=== PATIENT | female | born 1965 | race Caucasian/White ===

== ENCOUNTER → 2017-03-21 | Outpatient (CLI) | payer OTHER ==
[~2017-03-21] MED LIST: ACETAMINOPHEN500 MG PO; ALBU90OI INH; ALBU90OI61 INH; AMOCLA875 PO; Adipex-P37.5 M1 PO; Augmentin 875-1 EACH PO; CIPR500 PO; CIPR750 PO; Cyclobenzaprine5 MG PO; DIPH50 PO; Diflucan100 MG PO; FEXPSEER PO; FLONASE ALLERG9.9 ML; GUAI100SY; HYDACE25S PR; HYDGUAL120 PO; IBUP200; IBUP800 PO; MEDR10 PO; METO50 PO; METR500 PO; MIGRAINE RELIEF; Norco 10-325 T1 EACH PO; OXYACE5T PO; Percocet 5-3251 EACH PO; RANI150 PO; RXOXYACE PO; SULTRIDS PO; TRAZ100 PO; Toprol Xl25 MG PO; Zofran Odt4 MG SL; [UNRECOGNIZED DRUG - OTHER]
[2017-03-21 09:15] LABS: Source, Urine Clean Catch
[2017-03-21 10:49] LABS: Bacteria Not Seen /hpf; Red Blood Cells, Urine TNTC /hpf (0-2); Squamous Epithelial Cells Few /hpf (Few); White Blood Cells, Urine 0-2 /hpf (0-5)
== END ==
LOC: LAB 09:11
PROVIDERS: Nurse Practitioner Family
DX: R31.9 Hematuria, unspecified (principal)
CPT/HCPCS: 81015; 87086

== ENCOUNTER → 2017-03-28 | Outpatient (CLI) | payer OTHER | LOC: PLD 12:52 → LAB SHORT 12:52 | DX: N95.0 Postmenopausal bleeding (principal) | CPT/HCPCS: 88305 ==

== ENCOUNTER 2017-04-05 12:15 | Emergency (ER) | payer OTHER ==
[~2017-04-05] VITALS: Ht 172.7 cm; Wt 125.6 kg
[~2017-04-05 12:15] MED LIST changes: -MEDR10 PO; -METO50 PO; -MIGRAINE RELIEF; -Toprol Xl25 MG PO; -Zofran Odt4 MG SL; -[UNRECOGNIZED DRUG - OTHER]
[2017-04-05] MEDS ORDERED: MEDR10 PO (12:51)
[2017-04-05 13:07] LABS: BASOPHILS ABSOLUTE AUTO 0.04 K/mm3 (0.00-0.23); BASOPHILS PERCENT AUTO 1 % (0-2); EOSINOPHILS ABSOLUTE AUTO 0.26 K/mm3 (0.00-0.68); EOSINOPHILS PERCENT AUTO 3 % (0-6); Hematocrit 36.6 % (33.0-51.0); Hemoglobin 11.9 g/dL (11.5-16.0); IMMATURE GRAN ABSOLUTE AUTO 0.04 K/mm3 (0.00-0.10); IMMATURE GRAN PERCENT AUTO 1 % (0-1); LYMPHOCYTES ABSOLUTE AUTO 1.66 K/mm3 (0.84-5.20); LYMPHOCYTES PERCENT AUTO 19 % (21-46); MONOCYTES ABSOLUTE AUTO 0.76 K/mm3 (0.16-1.47); MONOCYTES PERCENT AUTO 9 % (4-13); Mean Corpuscular HGB 28.3 pg (26.0-34.0); Mean Corpuscular HGB Conc 32.5 g/dL (31.5-36.5); Mean Corpuscular Volume 87 fL (80-100); Mean Platelet Volume 9.4 fL (9.1-12.4); NEUTROPHILS ABSOLUTE AUTO 5.91 K/mm3 (1.96-9.15); NEUTROPHILS PERCENT AUTO 68 % (41-73); Platelet Count 251 K/mm3 (150-400); RDW Standard Deviation 47.6 fL (35.1-46.3); Red Blood Cell Count 4.21 M/mm3 (3.80-5.20); White Blood Cell Count 8.67 K/mm3 (4.00-11.30)
[2017-04-05 13:33] LABS: Alanine Aminotransfer (ALT/SGP 29 U/L (12-78); Albumin, Blood 3.4 g/dL (3.4-5.0); Albumin/Globulin Ratio 0.9 (0.8-1.8); Alk Phos 93 U/L (50-136); Anion Gap 8 mmol/L (6-16); Aspartate Aminotrans (AST/SGOT 15 U/L (12-37); Bilirubin, Total 0.6 mg/dL (0.1-1.0); Blood Urea Nitrogen 11 mg/dL (8-24); Bun/Creatinine Ratio 16.2 (12.0-20.0); CO2, Blood 24 mmol/L (21-32); Calcium, Blood 8.5 mg/dL (8.5-10.1); Chloride, Blood 109 mmol/L (98-108); Creatinine, Blood 0.68 mg/dL (0.40-1.00); Free Thyroxine 1.06 ng/dL (0.70-1.60); Globulin, Blood 3.7 g/dL (2.2-4.0); Glomerular Filtration Rate >60 (60-); Glucose, Blood 112 mg/dL (70-99); Magnesium, Blood 2.2 mg/dL (1.6-2.4); Potassium, Blood 3.6 mmol/L (3.5-5.5); Sodium, Blood 141 mmol/L (136-145); Total Protein, Blood 7.1 g/dL (6.4-8.2)
[2017-04-05 13:37] LABS: Thyroid Stimulating Hormone 0.514 uIU/mL (0.360-4.800)
[2017-04-05] MEDS ORDERED: Toprol Xl25 MG PO (13:56)
== END 2017-04-05 14:04 | disposition home or self-care (01) ==
LOC: ER 12:15
PROVIDERS: Emergency Medicine
DX: I48.91 Unspecified atrial fibrillation (principal); Z79.899 Other long term (current) drug therapy; Z90.721 Acquired absence of ovaries, unilateral
CPT/HCPCS: 36415; 71046; 80053; 83735; 84439; 84443; 85025; 93005; 93010; 99283

== ENCOUNTER 2017-04-28 11:55 | Emergency (ER) | payer OTHER ==
[~2017-04-28] VITALS: Ht 172.7 cm; Wt 123.4 kg
[~2017-04-28 11:55] MED LIST changes: +MEDR10 PO; +Toprol Xl25 MG PO
[2017-04-28 12:57] LABS: BASOPHILS ABSOLUTE AUTO 0.04 K/mm3 (0.00-0.23); BASOPHILS PERCENT AUTO 0 % (0-2); EOSINOPHILS ABSOLUTE AUTO 0.31 K/mm3 (0.00-0.68); EOSINOPHILS PERCENT AUTO 3 % (0-6); Hematocrit 37.7 % (33.0-51.0); Hemoglobin 12.1 g/dL (11.5-16.0); IMMATURE GRAN ABSOLUTE AUTO 0.07 K/mm3 (0.00-0.10); IMMATURE GRAN PERCENT AUTO 1 % (0-1); LYMPHOCYTES ABSOLUTE AUTO 1.97 K/mm3 (0.84-5.20); LYMPHOCYTES PERCENT AUTO 21 % (21-46); MONOCYTES ABSOLUTE AUTO 1.24 K/mm3 (0.16-1.47); MONOCYTES PERCENT AUTO 13 % (4-13); Mean Corpuscular HGB 28.1 pg (26.0-34.0); Mean Corpuscular HGB Conc 32.1 g/dL (31.5-36.5); Mean Corpuscular Volume 88 fL (80-100); Mean Platelet Volume 9.2 fL (9.1-12.4); NEUTROPHILS ABSOLUTE AUTO 5.66 K/mm3 (1.96-9.15); NEUTROPHILS PERCENT AUTO 61 % (41-73); Platelet Count 310 K/mm3 (150-400); RDW Coefficient Variation 14.7 % (11.7-14.2); RDW Standard Deviation 47.3 fL (35.1-46.3); Red Blood Cell Count 4.31 M/mm3 (3.80-5.20); White Blood Cell Count 9.29 K/mm3 (4.00-11.30)
[2017-04-28 13:17] LABS: Alanine Aminotransfer (ALT/SGP 25 U/L (12-78); Albumin, Blood 3.6 g/dL (3.4-5.0); Albumin/Globulin Ratio 0.8 (0.8-1.8); Alk Phos 120 U/L (50-136); Anion Gap 7 mmol/L (6-16); Aspartate Aminotrans (AST/SGOT 21 U/L (12-37); Bilirubin, Total 0.4 mg/dL (0.1-1.0); Blood Urea Nitrogen 12 mg/dL (8-24); Bun/Creatinine Ratio 21.6 (12.0-20.0); CO2, Blood 24 mmol/L (21-32); Calcium, Blood 8.7 mg/dL (8.5-10.1); Chloride, Blood 107 mmol/L (98-108); Creatinine, Blood 0.56 mg/dL (0.40-1.00); Globulin, Blood 4.7 g/dL (2.2-4.0); Glomerular Filtration Rate >60 (60-); Glucose, Blood 97 mg/dL (70-99); Potassium, Blood 4.3 mmol/L (3.5-5.5); Sodium, Blood 138 mmol/L (136-145); Total Protein, Blood 8.3 g/dL (6.4-8.2)
== END 2017-04-28 15:29 | disposition home or self-care (01) ==
LOC: ER 11:55
PROVIDERS: Physician Assistant
DX: K30 Functional dyspepsia (principal); Z79.899 Other long term (current) drug therapy; Z87.891 Personal history of nicotine dependence
CPT/HCPCS: 36415; 74022; 80053; 81000; 83690; 85025; 96374; 99283; C9113

== ENCOUNTER 2017-05-27 04:53 | Emergency (ER) | payer OTHER ==
[~2017-05-27] VITALS: Ht 172.7 cm; Wt 122.5 kg
[2017-05-27] MEDS ORDERED: [UNRECOGNIZED DRUG - OTHER] (05:19)
[2017-05-27] MEDS ORDERED: MIGRAINE RELIEF (05:19)
[2017-05-27] MEDS ORDERED: METO50 PO (05:19)
[2017-05-27 05:22] LABS: BASOPHILS ABSOLUTE AUTO 0.04 K/mm3 (0.00-0.23); BASOPHILS PERCENT AUTO 0 % (0-2); EOSINOPHILS PERCENT AUTO 3 % (0-6); Hematocrit 36.7 % (33.0-51.0); Hemoglobin 11.6 g/dL (11.5-16.0); IMMATURE GRAN ABSOLUTE AUTO 0.07 K/mm3 (0.00-0.10); IMMATURE GRAN PERCENT AUTO 1 % (0-1); LYMPHOCYTES ABSOLUTE AUTO 1.91 K/mm3 (0.84-5.20); LYMPHOCYTES PERCENT AUTO 16 % (21-46); MONOCYTES ABSOLUTE AUTO 0.97 K/mm3 (0.16-1.47); MONOCYTES PERCENT AUTO 8 % (4-13); Mean Corpuscular HGB 27.4 pg (26.0-34.0); Mean Corpuscular HGB Conc 31.6 g/dL (31.5-36.5); Mean Corpuscular Volume 87 fL (80-100); Mean Platelet Volume 9.1 fL (9.1-12.4); NEUTROPHILS ABSOLUTE AUTO 8.69 K/mm3 (1.96-9.15); NEUTROPHILS PERCENT AUTO 73 % (41-73); Platelet Count 306 K/mm3 (150-400); RDW Coefficient Variation 14.6 % (11.7-14.2); RDW Standard Deviation 46.5 fL (35.1-46.3); Red Blood Cell Count 4.23 M/mm3 (3.80-5.20); White Blood Cell Count 11.98 K/mm3 (4.00-11.30)
[2017-05-27 05:40] LABS: Alanine Aminotransfer (ALT/SGP 21 U/L (12-78); Albumin, Blood 3.2 g/dL (3.4-5.0); Albumin/Globulin Ratio 0.7 (0.8-1.8); Alk Phos 122 U/L (50-136); Anion Gap 5 mmol/L (6-16); Aspartate Aminotrans (AST/SGOT 13 U/L (12-37); Bilirubin, Total 0.3 mg/dL (0.1-1.0); Blood Urea Nitrogen 11 mg/dL (8-24); Bun/Creatinine Ratio 16.3 (12.0-20.0); CO2, Blood 28 mmol/L (21-32); Calcium, Blood 8.7 mg/dL (8.5-10.1); Chloride, Blood 105 mmol/L (98-108); Creatinine, Blood 0.68 mg/dL (0.40-1.00); Globulin, Blood 4.5 g/dL (2.2-4.0); Glomerular Filtration Rate >60 (60-); Glucose, Blood 120 mg/dL (70-99); Potassium, Blood 4.2 mmol/L (3.5-5.5); Sodium, Blood 138 mmol/L (136-145); Total Protein, Blood 7.7 g/dL (6.4-8.2)
[2017-05-27] MEDS ORDERED: Percocet 5-3251 EACH PO (06:07)
[2017-05-27] MEDS ORDERED: Zofran Odt4 MG SL (06:07)
[2017-05-27] MEDS ORDERED: Augmentin 875-1 EACH PO (06:07)
== END 2017-05-27 06:24 | disposition home or self-care (01) ==
LOC: ER 04:53
PROVIDERS: Emergency Medicine
DX: K57.32 Diverticulitis of large intestine without perforation or abscess without bleeding (principal); Z79.899 Other long term (current) drug therapy; Z87.891 Personal history of nicotine dependence
CPT/HCPCS: 36415; 74176; 80053; 83690; 85025; 96361; 96374; 96375; 99284; J1170; J2405; J7030

== ENCOUNTER 2017-09-09 07:28 | Emergency (ER) | payer OTHER ==
[~2017-09-09] VITALS: Ht 172.7 cm; Wt 127.0 kg
[~2017-09-09 07:28] MED LIST changes: +METO50 PO; +MIGRAINE RELIEF; +Zofran Odt4 MG SL; +[UNRECOGNIZED DRUG - OTHER]
== END 2017-09-09 08:35 | disposition home or self-care (01) ==
LOC: ER 07:28
DX: R00.2 Palpitations (principal); Z88.8 Allergy status to other drugs, medicaments and biological substances; Z79.899 Other long term (current) drug therapy; Z87.891 Personal history of nicotine dependence
CPT/HCPCS: 36415; 93005; 93010; 99284

== ENCOUNTER 2020-05-23 07:55 | Day surgery (SDC) | payer OTHER, SELFPAY ==
[~2020-05-23] VITALS: Ht 172.7 cm; Wt 133.4 kg
[~2020-05-23 07:55] MED LIST changes: +BUPR150ER PO; +FLUT.05NI; +GLUMETZA PO; +METO100ER PO; +METO50ER PO; +Naltrexone HCl50 MG PO; +OMEP20ER PO
--- NOTE | 2020-05-23 09:37 | NUR ---
Ambulatory in Day Surgery History, Chart, Medications and Allergies reviewed before start of procedure. Lungs clear T/O to Auscultation. Patient confirms NPO status and agrees with scheduled surgery. Patient States Post-Procedure ride home has been arranged.
[2020-05-23] MEDS ORDERED: MAGNESIUM (09:40)
[2020-05-23] MEDS ORDERED: PROBIOTICS (09:41)
[2020-05-23] MEDS ORDERED: VITAMIN D3 (09:41)
[2020-05-23] MEDS ORDERED: COQ-10100 MG (09:42)
[2020-05-23] MEDS ORDERED: CALCIUM (09:42)
--- NOTE | 2020-05-23 10:44 | NUR ---
05/23/20 1044 Jassi Rutledge PATIENT HAD HER RIGHT OVARY AND FALLOPIAN TUBE REMOVED PREVIOUSLY
[2020-05-24] MEDS ORDERED: IBUP800 PO (07:24)
[2020-05-24] MEDS ORDERED: OXYC5 PO (07:25)
--- NOTE | 2020-05-24 08:20 | NUR ---
PT X1 DAY POST OPRATIVE LAVH, PT A&O X4, SL IN RFA AN FLUSHES WELL, PT KAREN SOB AND USES CPAP AT NIGHT ON RA, BOWEL TONES HYPOACTIVE, PT KAREN N&V, PT HAS 4 LAPROSCOPIC INCISION SITES ON ABD, ENCOURAGD AMBULATION TO RELIEF GAS PAIN, ANTICIPATING D/C HOME THIS AM.
--- NOTE | 2020-05-24 12:00 | NUR ---
PT AMBULATED TO [employer] [facility] AND D/C HOME, FAMILY PROVIDING TRANSPORTATION. SL D/C WNL, D/C INSTRUCTIONS REVIEWED AND SIGNED, PT BELONGNINGS SENT WITH PT.
== END 2020-05-24 12:05 | disposition home or self-care (01) ==
LOC: ORSCMMR 07:55 → ORD 09:30 → BC 13:45 → ORSCMMR 05-24 12:05
PROVIDERS: Obstetrics & Gynecology
PROC: 0UT1FZZ Resection of Left Ovary, Via Natural or Artificial Opening With Percutaneous Endoscopic Assistance (ICD-10-PCS; principal; 2020-05-23 09:30)
PROC: 0UT6FZZ Resection of Left Fallopian Tube, Via Natural or Artificial Opening With Percutaneous Endoscopic Assistance (ICD-10-PCS; principal; 2020-05-23 09:30)
PROC: 0UT9FZZ Resection of Uterus, Via Natural or Artificial Opening With Percutaneous Endoscopic Assistance (ICD-10-PCS; principal; 2020-05-23 09:30)
DX: N95.0 Postmenopausal bleeding (principal); R93.89 Abnormal findings on diagnostic imaging of other specified body structures; I48.91 Unspecified atrial fibrillation; J44.9 Chronic obstructive pulmonary disease, unspecified; G47.33 Obstructive sleep apnea (adult) (pediatric); E11.9 Type 2 diabetes mellitus without complications; E66.01 Morbid (severe) obesity due to excess calories; Z68.41 Body mass index [BMI] 40.0-44.9, adult; K21.9 Gastro-esophageal reflux disease without esophagitis; Z79.899 Other long term (current) drug therapy
CPT/HCPCS: 82947; 88307; A9270; J0171; J0690; J1100; J1170; J1885; J2250; J2370; J2405; J2704; J2765; J3010; J7120

== ENCOUNTER 2020-08-05 11:43 | Day surgery (SDC) | payer OTHER ==
[~2020-08-05] VITALS: Ht 172.7 cm; Wt 129.2 kg
[~2020-08-05 11:43] MED LIST changes: +CALCIUM; +COQ-10100 MG; +MAGNESIUM; +OXYC5 PO; +PROBIOTICS; +VITAMIN D3
--- NOTE | 2020-08-05 12:14 | NUR ---
08/05/20 1214 Luz Maria Balbuena, RN CHARTING IN PREOP
[2020-08-05] MEDS ORDERED: Acetaminophen325 M1 PO (12:38)
[2020-08-05] MEDS ORDERED: METF500 PO (12:41)
[2020-08-05] MEDS ORDERED: Aspir 8181 MG PO (12:43)
--- NOTE | 2020-08-05 15:29 | NUR ---
08/05/20 1529 Suly Saravia PT IS CRYING AND EXPRESSING 9/10 PAIN, SHE HAS BEEN MEDICATED, SHE IS EATING AND DRINKING WHILE STATING THIS IS THE WORSE PAIN EVER. VS ARE STABLE AND ICE IS BEHIND HER KNEE ON THE OPERATIVE SIDE.
== END 2020-08-05 16:28 | disposition home or self-care (01) ==
LOC: ORSCSDS 11:43
PROVIDERS: Podiatrist Foot & Ankle Surgery
PROC: 0QSJ04Z Reposition Right Fibula with Internal Fixation Device, Open Approach (ICD-10-PCS; principal; 2020-08-05 14:00)
PROC: 0MQQ0ZZ Repair Right Ankle Bursa and Ligament, Open Approach (ICD-10-PCS; principal; 2020-08-05 14:00)
DX: S82.61XA Displaced fracture of lateral malleolus of right fibula, initial encounter for closed fracture (principal); S93.421A Sprain of deltoid ligament of right ankle, initial encounter; I48.91 Unspecified atrial fibrillation; J44.9 Chronic obstructive pulmonary disease, unspecified; G47.33 Obstructive sleep apnea (adult) (pediatric); Z87.891 Personal history of nicotine dependence; K21.9 Gastro-esophageal reflux disease without esophagitis; E11.9 Type 2 diabetes mellitus without complications; E66.01 Morbid (severe) obesity due to excess calories; Z68.41 Body mass index [BMI] 40.0-44.9, adult; Z79.84 Long term (current) use of oral hypoglycemic drugs; Z79.899 Other long term (current) drug therapy; J45.909 Unspecified asthma, uncomplicated; Z79.82 Long term (current) use of aspirin
CPT/HCPCS: 82947; A9270; C1713; J0171; J0690; J1100; J1885; J2250; J2405; J2704; J3010; J7120

== ENCOUNTER 2021-02-10 09:20 | Day surgery (SDC) | payer OTHER ==
[~2021-02-10] VITALS: Ht 172.7 cm; Wt 128.6 kg
[~2021-02-10 09:20] MED LIST changes: +Acetaminophen325 M1 PO; +Aspir 8181 MG PO; +METF500 PO
[2021-02-10] MEDS ORDERED: MAGNESIUM OXID500 MG PO (10:42)
[2021-02-10] MEDS ORDERED: VITAMIN D5000 UNIT PO (10:43)
[2021-02-10] MEDS ORDERED: PRED20 PO (10:44)
[2021-02-10] MEDS ORDERED: TRAM50 PO (10:45)
[2021-02-10] MEDS ORDERED: BENZONATATE100 MG PO (10:45)
[2021-02-10] MEDS ORDERED: AZIT200SU PO (10:45)
--- NOTE | 2021-02-10 12:26 | NUR ---
02/10/21 1226 Robbin Farris 0.25MG EPI ADDED TO 50 ML'S 0.5% MARCAINE TO ACHIEVE SOLUTION OF 0.5% MARCAINE WITH EPI 1:200,000. 10 ML'S OF THIS SOLUTION INJ AT END OF CASE BY DR CABRERA.
== END 2021-02-10 13:23 | disposition home or self-care (01) ==
LOC: ORSCSDS 09:20
PROVIDERS: Orthopaedic Surgery
PROC: 0SBD4ZZ Excision of Left Knee Joint, Percutaneous Endoscopic Approach (ICD-10-PCS; principal; 2021-02-10 10:45)
DX: S83.242A Other tear of medial meniscus, current injury, left knee, initial encounter (principal); I48.91 Unspecified atrial fibrillation; J44.9 Chronic obstructive pulmonary disease, unspecified; Z87.891 Personal history of nicotine dependence; E11.9 Type 2 diabetes mellitus without complications; E66.01 Morbid (severe) obesity due to excess calories; Z68.41 Body mass index [BMI] 40.0-44.9, adult; Z79.84 Long term (current) use of oral hypoglycemic drugs; Z79.899 Other long term (current) drug therapy; Z79.82 Long term (current) use of aspirin
CPT/HCPCS: 82947; J0171; J0690; J1100; J1885; J2250; J2405; J2704; J3010; J7120

== ENCOUNTER → 2021-03-17 | Outpatient (CLI) | payer OTHER ==
[~2021-03-17] MED LIST changes: +AZIT200SU PO; +BENZONATATE100 MG PO; +MAGNESIUM OXID500 MG PO; +PRED20 PO; +TRAM50 PO; +VITAMIN D5000 UNIT PO
== END | disposition home or self-care (01) ==
LOC: LAB SHORT 11:30
DX: R35.0 Frequency of micturition (principal)
CPT/HCPCS: 87077; 87086; 87186

== ENCOUNTER → 2021-04-11 | Outpatient (CLI) | payer OTHER | END | disposition home or self-care (01) | LOC: LAB SHORT 14:19 | DX: U07.1 COVID-19 (principal); J02.9 Acute pharyngitis, unspecified | CPT/HCPCS: 87081 ==

== ENCOUNTER 2021-10-29 22:47 | Observation (INO) | payer OTHER ==
[~2021-10-29] VITALS: Ht 172.7 cm; Wt 134.3 kg
[2021-10-29 23:38] LABS: BASOPHILS ABSOLUTE AUTO 0.07 K/mm3 (0.00-0.23); BASOPHILS PERCENT AUTO 1 % (0-2); EOSINOPHILS ABSOLUTE AUTO 0.46 K/mm3 (0.00-0.68); EOSINOPHILS PERCENT AUTO 3 % (0-6); Hematocrit 35.4 % (33.0-51.0); Hemoglobin 11.4 g/dL (11.5-16.0); IMMATURE GRAN ABSOLUTE AUTO 0.33 K/mm3 (0.00-0.10); IMMATURE GRAN PERCENT AUTO 2 % (0-1); LYMPHOCYTES ABSOLUTE AUTO 3.64 K/mm3 (0.84-5.20); LYMPHOCYTES PERCENT AUTO 25 % (21-46); MONOCYTES ABSOLUTE AUTO 1.75 K/mm3 (0.16-1.47); MONOCYTES PERCENT AUTO 12 % (4-13); Mean Corpuscular HGB 26.5 pg (26.0-34.0); Mean Corpuscular HGB Conc 32.2 g/dL (31.5-36.5); Mean Corpuscular Volume 82 fL (80-100); Mean Platelet Volume 9.3 fL (9.1-12.4); NEUTROPHILS ABSOLUTE AUTO 8.55 K/mm3 (1.96-9.15); NEUTROPHILS PERCENT AUTO 58 % (41-73); Platelet Count 409 K/mm3 (150-400); RDW Coefficient Variation 17.3 % (11.7-14.2); RDW Standard Deviation 51.6 fL (35.1-46.3); Red Blood Cell Count 4.31 M/mm3 (3.80-5.20)
[2021-10-29 23:57] LABS: Albumin, Blood 3.2 g/dL (3.4-5.0); Albumin/Globulin Ratio 0.8 (0.8-1.8); Bilirubin, Total 0.3 mg/dL (0.1-1.0); Calcium, Blood 8.6 mg/dL (8.5-10.1); Creatinine, Blood 0.64 mg/dL (0.40-1.00); Globulin, Blood 3.9 g/dL (2.2-4.0); Potassium, Blood 3.8 mmol/L (3.5-5.5); Thyroid Stimulating Hormone 2.67 uIU/mL (0.360-4.800); Total Protein, Blood 7.1 g/dL (6.4-8.2)
[2021-10-30] MEDS ORDERED: ACET500 PO (03:02)
[2021-10-30] MEDS ORDERED: FEROSUL325 M1 PO (03:03)
[2021-10-30] MEDS ORDERED: BACL10 PO (03:04)
[2021-10-30] MEDS ORDERED: ONDA4ODT MM (03:05)
[2021-10-30] MEDS ORDERED: ASCO500 PO (03:05)
[2021-10-30] MEDS ORDERED: FERROUS GLUCON324 M7 PO (03:07)
--- NOTE | 2021-10-30 06:00 | NUR ---
MS. GUNTER WAS ABLE TO REST OFF AND ON THROUGH THE NIGHT. THIS WAS A BIT OF A CHALLENGE DUE TO THE PATIENT IN THE ROOM NEXT DOOR SCREAMING OUT FAIRLY OFTEN THROUGH THE NIGHT. DESPITE THAT, MS. GUNTER DID SAY THAT SHE DOES FEEL BETTER THIS MORNING. A MATTER OF FACT SHE FELT BETTER ALMOST INSTANTLY AFTER THE PERICARDIOCENTESIS WAS PERFORMED YESTERDAY. SHE DENIES SHORTNESS OF BREATH AND/OR ANY DIFFICULTY BREATHING. SHE DID REQUIRED 2 LPM PER NASAL CANNNULA OF SUPPLEMENTAL OXYGEN FOLLOWING THE PROCEDURE. THIS CONTINUED THROUGHOUT THE NIGHT UNTIL THE 0300 HOUR WHEN HER OXYGEN NEEDS INCREASED TO 4 LPM. SHE DID NOT FEEL SHORT OF BREATH, WAS RESTING COMFORTABLY, LUNGS WERE CLEAR AND NO AUSCULTATION OF RESTRICTED AIR MOVEMENT. WILL CONTINUE TO MONITOR
[2021-10-30 06:08] LABS: Albumin, Blood 3.1 g/dL (3.4-5.0); Albumin/Globulin Ratio 0.8 (0.8-1.8); Bilirubin, Total 0.3 mg/dL (0.1-1.0); Bun/Creatinine Ratio 12.2 (12.0-20.0); Calcium, Blood 8.6 mg/dL (8.5-10.1); Creatinine, Blood 0.58 mg/dL (0.40-1.00); Globulin, Blood 3.8 g/dL (2.2-4.0); Potassium, Blood 3.7 mmol/L (3.5-5.5); Total Protein, Blood 6.9 g/dL (6.4-8.2)
[2021-10-30 06:11] LABS: BASOPHILS ABSOLUTE AUTO 0.09 K/mm3 (0.00-0.23); BASOPHILS PERCENT AUTO 1 % (0-2); EOSINOPHILS ABSOLUTE AUTO 0.41 K/mm3 (0.00-0.68); EOSINOPHILS PERCENT AUTO 3 % (0-6); Hematocrit 35.7 % (33.0-51.0); Hemoglobin 11.2 g/dL (11.5-16.0); IMMATURE GRAN ABSOLUTE AUTO 0.27 K/mm3 (0.00-0.10); IMMATURE GRAN PERCENT AUTO 2 % (0-1); LYMPHOCYTES ABSOLUTE AUTO 2.76 K/mm3 (0.84-5.20); LYMPHOCYTES PERCENT AUTO 23 % (21-46); MONOCYTES ABSOLUTE AUTO 1.22 K/mm3 (0.16-1.47); MONOCYTES PERCENT AUTO 10 % (4-13); Mean Corpuscular HGB 26.4 pg (26.0-34.0); Mean Corpuscular HGB Conc 31.4 g/dL (31.5-36.5); Mean Corpuscular Volume 84 fL (80-100); Mean Platelet Volume 9.6 fL (9.1-12.4); NEUTROPHILS ABSOLUTE AUTO 7.32 K/mm3 (1.96-9.15); NEUTROPHILS PERCENT AUTO 61 % (41-73); Platelet Count 366 K/mm3 (150-400); RDW Coefficient Variation 17.3 % (11.7-14.2); RDW Standard Deviation 53.7 fL (35.1-46.3); Red Blood Cell Count 4.24 M/mm3 (3.80-5.20); White Blood Cell Count 12.07 K/mm3 (4.00-11.30)
--- NOTE | 2021-10-30 08:29 | NUR ---
CARDIZEM GTT STOPPED PER DR SIGALA VERBAL ORDER. AT BEDSIDE AT THIS TIME.
--- NOTE | 2021-10-30 13:02 | NUR ---
PT BACK TO BED AFTER TAKING A SHOWER. NO REPORT OF SOB OR HEART PALPITATIONS. SATS IN THE 90'S AND HR IN THE 80'S AFTER PT HOOKED BACK UP TO TELE AND VITALS TAKEN.
--- NOTE | 2021-10-30 16:46 | NUR ---
SHIFT SUMMARY PT A/OX4 AND COOPERATIVE OF CARE. VSS THROUGHOUT SHIFT WITH O2 SATS HIGH 90'S ON RA. CARDIZEM GTT STOPPED AT 0843 PER ORDERS, SEE NOTES. PT REMAINED SR THROUGHOUT SHIFT, BEFORE SCHOOL BABYSITTER ADJUSTED METOPROLOL DOSAGE, SEE EMAR. NO REPORT OF CHEST PAIN/PRESSURE THROUGHOUT SHIFT. NO REPORT OF SOB THROUGHOUT SHIFT. PT WAS UP TO BATHROOM MULTIPLE TIMES AND TOOK SHOWER ON HER OWN, TOLERATED WELL. HR OCCASSIONALLY IN 100'S WHEN PT AMBULATING, STAYED IN 90'S MAJORITY OF THE TIME WHEN PT WAS AMBULATING. PT REPORTED CHARONIC BACK PAIN, TREATED PER EMAR.
[2021-10-31 04:11] LABS: BASOPHILS ABSOLUTE AUTO 0.06 K/mm3 (0.00-0.23); BASOPHILS PERCENT AUTO 1 % (0-2); EOSINOPHILS PERCENT AUTO 4 % (0-6); Hematocrit 32.4 % (33.0-51.0); Hemoglobin 10.2 g/dL (11.5-16.0); IMMATURE GRAN ABSOLUTE AUTO 0.14 K/mm3 (0.00-0.10); IMMATURE GRAN PERCENT AUTO 1 % (0-1); LYMPHOCYTES ABSOLUTE AUTO 2.54 K/mm3 (0.84-5.20); LYMPHOCYTES PERCENT AUTO 26 % (21-46); MONOCYTES ABSOLUTE AUTO 1.13 K/mm3 (0.16-1.47); MONOCYTES PERCENT AUTO 12 % (4-13); Mean Corpuscular HGB 26.4 pg (26.0-34.0); Mean Corpuscular HGB Conc 31.5 g/dL (31.5-36.5); Mean Corpuscular Volume 84 fL (80-100); Mean Platelet Volume 9.5 fL (9.1-12.4); NEUTROPHILS ABSOLUTE AUTO 5.46 K/mm3 (1.96-9.15); NEUTROPHILS PERCENT AUTO 56 % (41-73); Platelet Count 312 K/mm3 (150-400); RDW Coefficient Variation 17.2 % (11.7-14.2); RDW Standard Deviation 52.7 fL (35.1-46.3); Red Blood Cell Count 3.87 M/mm3 (3.80-5.20); White Blood Cell Count 9.73 K/mm3 (4.00-11.30)
[2021-10-31 04:32] LABS: Bun/Creatinine Ratio 14.9 (12.0-20.0); Calcium, Blood 8.8 mg/dL (8.5-10.1); Creatinine, Blood 0.54 mg/dL (0.40-1.00); Potassium, Blood 4.2 mmol/L (3.5-5.5)
--- NOTE | 2021-10-31 06:49 | NUR ---
NO ACUTE EVENTS OVERNIGHT. MRS. GUNTER REMAINED IN SINUS RHYTHM WITH RATES IN THE 60S -80S THROUGHOUT THE NIGHT. VSS, INDPENDENT WITH ALL CARES.
--- NOTE | 2021-10-31 08:00 | NUR ---
PT A&OX4. PT DENIES PAIN, CP, OR SOB. ECG SHOWS SR WITH RATE 60'S. BP STABLE. LUNGS SLIGHTLY DIMINISHED IN THE BASES.SATS 98% ON RA. NO NOTED COUGH. PT DENIES GI DISTRESS. UP INDEPENDENTLY IN THE ROOM. PT VERBALIZES THAT SHE IS ANXIOUS TO GO HOME. CALL LIGHT WITHIN REACH. ANTICIPATE DISCHARGE TO HOME LATER TODAY. PT TO FOLLOW UP WITH DR. SIGALA.
--- NOTE | 2021-10-31 11:51 | NUR ---
PT UP AD [place] IN THE ROOM. NO COMPLAINTS-AWAITING DISCHARGE.
[2021-10-31] MEDS ORDERED: METO50ER PO (12:12)
--- NOTE | 2021-10-31 12:51 | NUR ---
REVIEWED DISCHARGE INSTRUCTIONS WITH PT. PT VERBALIZES UNDERSTANDING. IV DISCONTINUED. PT HAS HER BELONGINGS. AWAITING TRANSPORTATION.
== END 2021-10-31 13:47 | disposition home or self-care (01) ==
LOC: ER 22:47 → ICUW 22:48 → PCU 22:48 → ICUW 22:48 → PCU 10-30 02:00
PROVIDERS: Emergency Medicine; Family Medicine; ADMIT Internal Medicine
DX: I47.1 Supraventricular tachycardia (principal); I48.20 Chronic atrial fibrillation, unspecified; D72.829 Elevated white blood cell count, unspecified; I10 Essential (primary) hypertension; J45.909 Unspecified asthma, uncomplicated; Z79.899 Other long term (current) drug therapy; Z79.84 Long term (current) use of oral hypoglycemic drugs; Z79.82 Long term (current) use of aspirin; Z87.891 Personal history of nicotine dependence
CPT/HCPCS: 36415; 80048; 80053; 83735; 84443; 84484; 85025; 93005; 93010; 93306; 94660; 94762; 96365; 96372; 96375; 99285-25; A9270; G0378; J1650; J3480; J7030

== ENCOUNTER 2022-01-15 11:10 | Day surgery (SDC) | payer OTHER ==
[~2022-01-15] VITALS: Ht 172.7 cm; Wt 133.2 kg
[~2022-01-15 11:10] MED LIST changes: +ACET500 PO; +ASCO500 PO; +BACL10 PO; +FEROSUL325 M1 PO; +FERROUS GLUCON324 M7 PO; +ONDA4ODT MM
--- NOTE | 2022-01-15 13:09 | NUR ---
01/15/22 1309 SANJUANA RO 0.15MG OF EPI ADDED TO 30MLS OF BUPIVACAINE 0.5% TO CREATE A LOCAL SOLUTION OF BUPIVACAINE 0.5% WITH EPI 1:200,000. LOCAL POURED ONTO STERILE FIELD FOR USE DURING CASE.
--- NOTE | 2022-01-15 13:57 | NUR ---
01/15/22 1357 SERA SHELDON PT C/O PAIN 06/18. SHE REQUESTED BOTH IV AND PO MEDICATION. BP 112/72 PULSE 80 O2 SAT 99%. FENTANYL 25MCG IV PUSH NOW WELL PERCOCET 5/325MG PO NOW.
== END 2022-01-15 14:45 | disposition home or self-care (01) ==
LOC: ORSCSDS 11:10
PROVIDERS: Podiatrist Foot & Ankle Surgery
PROC: 0SPF04Z Removal of Internal Fixation Device from Right Ankle Joint, Open Approach (ICD-10-PCS; principal; 2022-01-15 12:30)
DX: T84.84XA Pain due to internal orthopedic prosthetic devices, implants and grafts, initial encounter (principal); I48.91 Unspecified atrial fibrillation; E11.9 Type 2 diabetes mellitus without complications; J44.9 Chronic obstructive pulmonary disease, unspecified; G47.33 Obstructive sleep apnea (adult) (pediatric); Z79.84 Long term (current) use of oral hypoglycemic drugs; Z79.899 Other long term (current) drug therapy; Z79.82 Long term (current) use of aspirin; Z87.891 Personal history of nicotine dependence; E66.01 Morbid (severe) obesity due to excess calories; Z68.41 Body mass index [BMI] 40.0-44.9, adult
CPT/HCPCS: A9270; J0171; J0690; J1100; J1885; J2405; J2704; J2795; J3010; J7120

== ENCOUNTER 2022-03-02 11:13 | Day surgery (SDC) | payer OTHER ==
[~2022-03-02] VITALS: Ht 172.7 cm; Wt 131.8 kg
[2022-03-02] MEDS ORDERED: ELDERTONIC LIQ473 ML PO (12:00)
--- NOTE | 2022-03-02 13:13 | NUR ---
03/02/22 1313 Annika Villarreal A PILLOW UNDER HEAD, BOTH ARMS SECURED ON PADDED ARM BOARDS, RIGHT KNEE RYAN, LEFT KNEE IN FOAM LEG RYAN.
--- NOTE | 2022-03-02 15:15 | NUR ---
03/02/22 1515 PELON PEREZ 750 ML IV FLUIDS REAMINED OF SECOND LR GIVEN
== END 2022-03-02 15:17 | disposition home or self-care (01) ==
LOC: ORSCSDS 11:13
PROVIDERS: Orthopaedic Surgery
PROC: 0SJC4ZZ Inspection of Right Knee Joint, Percutaneous Endoscopic Approach (ICD-10-PCS; principal; 2022-03-02 12:30)
DX: S83.231A Complex tear of medial meniscus, current injury, right knee, initial encounter (principal); M94.261 Chondromalacia, right knee; K21.9 Gastro-esophageal reflux disease without esophagitis; I48.91 Unspecified atrial fibrillation; G47.33 Obstructive sleep apnea (adult) (pediatric); Z87.891 Personal history of nicotine dependence; E11.9 Type 2 diabetes mellitus without complications; E66.01 Morbid (severe) obesity due to excess calories; Z68.41 Body mass index [BMI] 40.0-44.9, adult; Z79.84 Long term (current) use of oral hypoglycemic drugs; Z79.899 Other long term (current) drug therapy
CPT/HCPCS: 82947; A9270; J0171; J0690; J1100; J1885; J2250; J2405; J2704; J2795; J3010

== ENCOUNTER 2022-10-22 20:44 | Emergency (ER) | payer OTHER ==
[~2022-10-22] VITALS: Ht 172.7 cm; Wt 129.3 kg
[~2022-10-22 20:44] MED LIST changes: +ELDERTONIC LIQ473 ML PO
[2022-10-22 21:44] LABS: BASOPHILS ABSOLUTE AUTO 0.07 K/mm3 (0.00-0.23); BASOPHILS PERCENT AUTO 1 % (0-2); EOSINOPHILS ABSOLUTE AUTO 0.37 K/mm3 (0.00-0.68); EOSINOPHILS PERCENT AUTO 3 % (0-6); Hematocrit 34.6 % (33.0-51.0); Hemoglobin 11.5 g/dL (11.5-16.0); IMMATURE GRAN ABSOLUTE AUTO 0.14 K/mm3 (0.00-0.10); IMMATURE GRAN PERCENT AUTO 1 % (0-1); LYMPHOCYTES ABSOLUTE AUTO 2.43 K/mm3 (0.84-5.20); LYMPHOCYTES PERCENT AUTO 17 % (21-46); MONOCYTES ABSOLUTE AUTO 1.11 K/mm3 (0.16-1.47); MONOCYTES PERCENT AUTO 8 % (4-13); Mean Corpuscular HGB 27.7 pg (26.0-34.0); Mean Corpuscular HGB Conc 33.2 g/dL (31.5-36.5); Mean Corpuscular Volume 83 fL (80-100); Mean Platelet Volume 9.5 fL (9.1-12.4); NEUTROPHILS ABSOLUTE AUTO 10.02 K/mm3 (1.96-9.15); NEUTROPHILS PERCENT AUTO 71 % (41-73); Platelet Count 359 K/mm3 (150-400); RDW Coefficient Variation 15.5 % (11.7-14.2); RDW Standard Deviation 46.8 fL (35.1-46.3); Red Blood Cell Count 4.15 M/mm3 (3.80-5.20); White Blood Cell Count 14.14 K/mm3 (4.00-11.30)
[2022-10-22 22:01] LABS: Albumin, Blood 3.6 g/dL (3.4-5.0); Albumin/Globulin Ratio 0.9 (0.8-1.8); Bilirubin, Total 0.4 mg/dL (0.1-1.0); Bun/Creatinine Ratio 16.3 (12.0-20.0); Creatinine, Blood 0.61 mg/dL (0.40-1.00); Globulin, Blood 3.9 g/dL (2.2-4.0); Potassium, Blood 4.1 mmol/L (3.5-5.5); Total Protein, Blood 7.5 g/dL (6.4-8.2)
[2022-10-23] VITALS: BP 121/53
== END 2022-10-23 00:11 | disposition home or self-care (01) ==
LOC: ER 20:44
PROVIDERS: Student in an Organized Health Care Education/Training Program
DX: I48.91 Unspecified atrial fibrillation (principal); J45.909 Unspecified asthma, uncomplicated; Z79.899 Other long term (current) drug therapy; Z79.82 Long term (current) use of aspirin
CPT/HCPCS: 71046; 80053; 84484; 85025; 93005; 93010; A9270; J1200; J2270; J2405

== ENCOUNTER 2024-05-28 08:29 | Day surgery (SDC) | payer OTHER ==
[~2024-05-28] VITALS: Ht 172.7 cm; Wt 134.4 kg
[~2024-05-28 08:29] MED LIST changes: +Balanced Salt Epinephrine Irrigation Solution 500 mL IR SCH; +Lidocaine HCl/Pf 1% 5 ML VIAL XX SCH; +Moxifloxacin HCL 0.5 MG/0.1 ML 0.4MLSYR LEFTEYE SCH; +PHENYLEPHRINE\\TROPICAMIDE\\TETRACAINE OPHTHALMIC DILATING SOLN LEFTEYE PRN; +Povidone-Iodine 450 DROP/30 ML Solution LEFTEYE SCH; +Povidone-Iodine 450 DROP/30 ML Solution ONE; +Tetracaine HCl/Pf 0.5% Opth Soln 4 ml ONE; +Triamcinolone Inj Susp 40 MG / ML 1ML Vial INJ SCH; +Triamcinolone Inj Susp 40 MG / ML 1ML Vial ONE
[2024-05-28] MEDS ORDERED: IRON18 M1 (09:13)
[2024-05-28] MEDS ORDERED: BUPROPION HCL200 M1 (09:13)
[2024-05-28] MEDS ORDERED: ATOR10 (09:13)
[2024-05-28] MEDS ORDERED: NEURONTIN300 MG (09:13)
[2024-05-28] MEDS ORDERED: ACET500 (09:14)
[2024-05-28] MEDS ORDERED: IBUP600 (09:14)
[2024-05-28] MEDS ORDERED: Midazolam HCl 1MG / ML 2ML Vial ONE (09:33)
[2024-05-28] MEDS ORDERED: FentaNYL Citrate 50 MCG/ML 2 ML Injection ONE (09:33)
[2024-05-28 10:31] VITALS: BP 115/71
== END 2024-05-28 10:41 | disposition home or self-care (01) ==
LOC: ORSCSDS 08:29
PROVIDERS: Ophthalmology
PROC: 08RK3JZ Replacement of Left Lens with Synthetic Substitute, Percutaneous Approach (ICD-10-PCS; principal; 2024-05-28 10:00)
DX: E11.36 Type 2 diabetes mellitus with diabetic cataract (principal); H25.812 Combined forms of age-related cataract, left eye; Z96.1 Presence of intraocular lens; F32.A Depression, unspecified; Z87.891 Personal history of nicotine dependence; I48.91 Unspecified atrial fibrillation; E66.9 Obesity, unspecified; Z68.42 Body mass index [BMI] 45.0-49.9, adult; K21.9 Gastro-esophageal reflux disease without esophagitis; Z79.82 Long term (current) use of aspirin; Z79.84 Long term (current) use of oral hypoglycemic drugs; Z79.899 Other long term (current) drug therapy
CPT/HCPCS: 82947; J2250; J3010; J3301; V2632